=== PATIENT | male | born 1970 | race African-American/Black ===

== ENCOUNTER 2018-01-18 21:46 | Inpatient (IN) | payer SELFPAY ==
[~2018-01-18] VITALS: Ht 188 cm; Wt 72.1 kg
[2018-01-18] MEDS ORDERED: IV NORMAL SALINE 1,000ML 1,000 ML IV SCH (22:01)
--- NOTE | 2018-01-18 22:09 | EKG ---
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
[2018-01-18 22:24] LABS: BASO # 0.1 x10^3/uL (0.0-0.2); BASO % 1 % (0-3); EOS # 0.1 x10^3/uL (0.0-0.7); EOS % 1 % (0-3); HEMATOCRIT 38.6 % (39.0-53.0); HEMOGLOBIN 12.7 g/dL (13.0-17.5); LYMPH # 2.5 x10^3/uL (1.0-4.8); LYMPH % 36 % (24-48); MEAN CORPUSCULAR HEMOGLOBIN 28 pg (25-35); MEAN CORPUSCULAR HGB CONC 33 g/dL (31-37); MEAN CORPUSCULAR VOLUME 86 fL (79-100); MONO # 0.4 x10^3/uL (0.0-1.1); MONO % 6 % (0-9); NEUT # 3.7 x10^3uL (1.8-7.7); NEUT % 55 % (31-73); PLATELET COUNT 205 x10^3/uL (140-400); RED BLOOD COUNT 4.51 x10^6/uL (4.30-5.70); RED CELL DISTRIBUTION WIDTH 15.7 % (11.5-14.5); WHITE BLOOD COUNT 6.8 x10^3/uL (4.0-11.0)
--- NOTE | 2018-01-18 22:27 | PHYS DOC ---
Past History Past Medical History: CVA Smoking: Cigarettes Adult General Chief Complaint Chief Complaint: NEURO SYMPTOMS/DEFICITS HPI HPI Patient is a 47 year old male who presents with complaint of left upper extremity weakness. Patient states that his symptoms started 3 days ago. The patient states he's had previous history of multiple hemorrhagic CVAs and has been treated at [facility] in the past. Patient states that he has had chronic left-sided motor deficits but states that he has rehabilitation well and has been able to independently ambulate. Patient states that he noticed weakness in his left upper extremity after he was trying to pour from a pitcher and states that he lost the mortgage assistant on it. Patient states that the weakness in his left upper extremity has persisted since then. He states that this is worse than his baseline. Patient notes also that he has had increased numbness in the left upper extremity. Patient denies any increased weakness in the left lower extremity, difficulty with speech or swallowing, loss of vision, or fever. The patient states that he is not currently taking medications for treatment. Patient has not taken any medicine since onset of symptoms. Review of Systems Review of Systems Constitutional: Denies fever or chills [] Eyes: Denies change in visual acuity, redness, or eye pain [] HENT: Denies nasal congestion or sore throat [] Respiratory: Denies cough or shortness of breath [] Cardiovascular: Denies chest pain or edema[] GI: Denies abdominal pain, nausea, vomiting, bloody stools or diarrhea [] : Denies dysuria or hematuria [] Musculoskeletal: Chronic left hip pain[] Integument: Denies rash or skin lesions [] Neurologic: Left upper extremity weakness and numbness[] All other systems were reviewed and found to be within normal limits, except as documented in this note. Current Medications Current Medications Current Medications Medications (Trade) Dose Ordered Sig/Lesia Start Time Stop Time Status Last Admin Dose Admin Sodium Chloride 1,000 ml @ 1,000 mls/hr Q1H 01/18/18 22:01 01/18/18 23:00 UNV Allergies Allergies No known drug allergies Physical Exam Physical Exam Constitutional: Alert, afebrile, no acute distress. [] HENT: Normocephalic, atraumatic, bilateral external ears normal, oropharynx moist, no oral exudates, nose normal. [] Eyes: PERRLA, EOMI, conjunctiva normal, no discharge. [] Neck: Normal range of motion, no tenderness, supple, no stridor. [] Cardiovascular: Bradycardiac, regular rhythm, no murmur [] Lungs & Thorax: Bilateral breath sounds clear to auscultation [] Abdomen: Bowel sounds normal, soft, no tenderness, no masses, no pulsatile masses. [] Skin: Warm, dry, no erythema, no rash. [] Back: No tenderness, no CVA tenderness. [] Extremities: No tenderness, no cyanosis, no clubbing, ROM intact, no edema. [] Neurologic: Alert and oriented X 3, cranial nerves II through XII grossly intact , 4 out of 5 strength in the left upper extremity, 5 out of 5 strength in all other extremities, normal [id number] test, normal finger to nose test, decreased sensation in the left upper extremity to light touch. [] Current Patient Data Vital Signs Vital Signs Date Time Temp Pulse Resp B/P (MAP) Pulse Ox O2 Delivery O2 Flow Rate FiO2 01/18/18 22:11 Nasal Cannula 2.0 Lab Results Laboratory Tests Test 01/18/18 22:10 White Blood Count 6.8 x10^3/uL Red Blood Count 4.51 x10^6/uL Hemoglobin 12.7 g/dL Hematocrit 38.6 % Mean Corpuscular Volume 86 fL Mean Corpuscular Hemoglobin 28 pg Mean Corpuscular Hemoglobin Concent 33 g/dL Red Cell Distribution Width 15.7 % Platelet Count 205 x10^3/uL Neutrophils (%) (Auto) 55 % Lymphocytes (%) (Auto) 36 % Monocytes (%) (Auto) 6 % Eosinophils (%) (Auto) 1 % Basophils (%) (Auto) 1 % Neutrophils # (Auto) 3.7 x10^3uL Lymphocytes # (Auto) 2.5 x10^3/uL Monocytes # (Auto) 0.4 x10^3/uL Eosinophils # (Auto) 0.1 x10^3/uL Basophils # (Auto) 0.1 x10^3/uL Sodium Level 143 mmol/L Potassium Level 3.7 mmol/L Chloride Level 109 mmol/L Carbon Dioxide Level 29 mmol/L Anion Gap 5 Blood Urea Nitrogen 10 mg/dL Creatinine 1.0 mg/dL Estimated GFR (Cockcroft-Gault) 97.8 BUN/Creatinine Ratio 10 Glucose Level 88 mg/dL Calcium Level 9.1 mg/dL Magnesium Level 1.7 mg/dL Total Bilirubin 0.3 mg/dL Aspartate Amino Transf (AST/SGOT) 12 U/L Alanine Aminotransferase (ALT/SGPT) 17 U/L Alkaline Phosphatase 60 U/L Total Protein 6.4 g/dL Albumin 3.5 g/dL Albumin/Globulin Ratio 1.2 Current Medications Medications (Trade) Dose Ordered Sig/Lesia Route PRN Reason Start Time Stop Time Status Last Admin Dose Admin Sodium Chloride 1,000 ml @ 1,000 mls/hr Q1H IV 01/18/18 22:01 01/18/18 23:00 UNV 01/18/18 22:42 Aspirin (Children'S Aspirin) 324 mg 1X ONCE PO 01/18/18 22:30 01/18/18 22:31 UNV 01/18/18 22:42 EKG EKG Interpreted by me: Heart rate 49, sinus bradycardia, normal intervals, normal axis, no acute ST/T-wave abnormalities present[] Radiology/Procedures Radiology/[place] [address] IMAGING REPORT Signed PATIENT: DMITRY WILKINSON ACCOUNT: [id number] : 1970 LOCATION: ER AGE: 47 SEX: M EXAM STATUS: REG ER ORD. PHYSICIAN: ANGIE MCLEOD MD REASON: left sided weakness x 3 days, hx of CVA PROCEDURE: CT HEAD WO CONTRAST CT Head W/O Contrast: History: left sided weakness x 3 days, hx of CVA Comparison: none Axial images were obtained without contrast. The lewis and white matter appears normal and symmetrical for the patients age. There is no mass effect, extraaxial fluid collections or hydrocephalus. There is right temporal frontal encephalomalacia consistent with old stroke in the right MCA territory. There is no gross bleed. There is no focal loss of lewis-white matter distinction to suggest acute ischemia, i.e. stroke. Impression: Old stroke on the right. No acute findings. PQRS Compliance Statement: One or more of the following individualized dose reduction techniques were utilized for this examination: 1. Automated exposure control 2. Adjustment of the mA and/or kV according to patient size 3. Use of iterative reconstruction technique Electronically signed by: Tran Hill III, MD (01/18/2018 10:24 PM) [facility] DICTATED AND SIGNED BY: TRAN HILL III, MD DATE: 01/18/182220 CC: ANGIE MCLEOD MD; PCP,UNKNOWN ~ [] Course & Med Decision Making Course & Med Decision Making Pertinent Labs and Imaging studies reviewed. (See chart for details) CT scan shows no new hemorrhage. Onset of symptoms are greater than 48 hours, and given history of hemorrhagic stroke, the patient is not a candidate for use of TPA with his new onset left upper extremity weakness. NIH score is 2. Etiology of the patient's new onset left upper extremity weakness is unclear. The patient will require admission to the hospital for further evaluation and care. Patient admitted to Dr. Barker. A routine consult was placed to Dr. Cervantes of neurology to follow with patient in hospital. Dragon Disclaimer Dragon Disclaimer This electronic medical record was generated, in whole or in part, using a voice recognition dictation system. Departure Departure: Impression: Primary Impression: Left-sided weakness Additional Impression: History of CVA (cerebrovascular accident) Disposition: ADMITTED INPATIENT Admitting Physician: Chanel Barker Condition: STABLE Referrals: PCP,UNKNOWN (PCP) Problem Qualifiers ANGIE MCLEOD MD Jan 18, 2018 22:27
[2018-01-18] MEDS ORDERED: ASPIRIN 81 MG TAB.CHEW PO ONE (22:30)
[2018-01-18 22:38] LABS: ALBUMIN 3.5 g/dL (3.4-5.0); ALBUMIN/GLOBULIN RATIO 1.2 (1.0-1.7); CALCIUM 9.1 mg/dL (8.5-10.1); GFR 97.8; MAGNESIUM 1.7 mg/dL (1.8-2.4); POTASSIUM 3.7 mmol/L (3.5-5.1); TOTAL BILIRUBIN 0.3 mg/dL (0.2-1.0); TOTAL PROTEIN 6.4 g/dL (6.4-8.2)
[2018-01-18] MEDS ORDERED: ACETAMINOPHEN 325 MG TABLET PO PRN (23:15)
[2018-01-18] MEDS ORDERED: ONDANSETRON PF 4 MG/2 ML VIAL. IV PRN (23:15)
--- NOTE | 2018-01-18 23:17 | RAD ---
AP chest x-ray HISTORY: Left-sided weakness. FINDINGS: Heart size normal. Mediastinal silhouette is normal. No pneumothorax, pulmonary opacities or pleural effusions. Bones are unremarkable. IMPRESSION: No acute process. Electronically signed by: Korey Chadwick MD (01/18/2018 11:13 PM) [facility]
[2018-01-18 23:46] LABS: BACTERIA,URINE 0 /HPF (0-FEW); BILIRUBIN,URINE NEG (NEG); CLARITY,URINE CLEAR; COLOR,URINE YELLOW; GLUCOSE,URINE NEG (NEG); NITRITE,URINE NEG (NEG); RBC,URINE 0 /HPF (0-2); SQUAMOUS EPITHELIAL CELL,UR OCC /LPF; UROBILINOGEN,URINE 0.2 mg/dL (0.2 mg/dL); WBC,URINE OCC /HPF (0-4)
[2018-01-18 23:47] LABS: AMPHETAMINE/METHAMPHETAMINE NEG (NEG); BARBITURATES NEG (NEG); BENZODIAZEPINES NEG (NEG); CANNABINOIDS NEG (NEG); COCAINE NEG (NEG); METHADONE NEG (NEG); OPIATES NEG (NEG); PHENCYCLIDINE NEG (NEG)
[2018-01-18 23:54] VITALS: BP 137/72
[2018-01-19] MEDS: IV NORMAL SALINE 1,000ML 1,000 ML IV SCH ×3 (00:03→19:07)
[2018-01-19] MEDS ORDERED: NICOTINE 21MG PATCH. TD PRN (01:15)
[2018-01-19] MEDS ORDERED: ASPI81TA50 PO (01:46)
[2018-01-19 05:41] VITALS: BP 133/79
[2018-01-19 06:40] LABS: CALCIUM 8.8 mg/dL (8.5-10.1); GFR 97.8; POTASSIUM 3.7 mmol/L (3.5-5.1)
[2018-01-19 11:04] VITALS: BP 123/65
--- NOTE | 2018-01-19 14:02 | HP ---
ADMIT DATE: 01/18/2018 HISTORY OF PRESENT ILLNESS: The patient is a 47-year-old -[place] male patient who was seen in the Emergency Room with a complaint of left upper extremity weakness. He stated that his symptoms started about 3 days ago. The patient stated he had previous history of multiple hemorrhagic CVAs and has been treated at [facility]. In the past, he did have chronic left-sided motor deficit but stated he has rehabilitation well and has been able to independently ambulate. He stated he noticed weakness in his left upper extremity after he was trying to board from wheelchair and states that he lost the quality facilitator on it. He stated weakness in his left upper extremity has persisted since then. He stated this is worse than his baseline. He notes that he has had increased numbness in his left upper extremity. He denied any worsening weakness in his left lower extremity or difficulty with speech or swallowing. He denied any loss of vision or fever. The patient said that he has not had any medications since the onset of symptoms as he was pulled over by a risk control consultant while on his way back to [place] around at [place] and he was incarcerated for the last 3 days. He does not know what happened to his car or his dogs. He was evaluated in the Emergency Room. His CT scan showed that he has right temporal frontal encephalomalacia consistent with an old stroke in the right middle cerebral artery territory. There is no gross bleed. There is no focal loss of lewis-white matter differentiation to suggest an acute ischemia, i.e., stroke. PAST MEDICAL HISTORY: Significant for according to him multiple strokes, although the CT scan showed only the right-sided CVA consistent with the weakness in his left side. He also has seizure disorder for which he is on Keppra. PAST SURGICAL HISTORY: Significant for skin grafting to his left ring and middle fingers. ALLERGIES: He has no known drug allergies. MEDICATIONS: We are not sure exactly what medications he is on, but we will contact the [facility] in [place] to find out exactly how much he is getting or what he is getting. He claims that he is on aspirin, Keppra, and Nicoderm patch. He apparently has had left heart catheterization and was told that his heart is weak and he might require defibrillator, although he is not on any blood thinner. FAMILY HISTORY: He has 1 brother and 3 sisters, alive and healthy. His father in his late 50s as a complication of coronary artery bypass graft surgery. His mother in her late 50s also because of bronchial asthma and complication of diabetes. SOCIAL HISTORY: He is single, never ; however, he has 2 sons and 1 daughter. He smokes more than a pack a day. He does not drink alcohol or use any recreational drugs. He is currently on disability. REVIEW OF SYSTEMS: The patient denied any blurring of vision, cataract, glaucoma, or macular degeneration. Denied any earache, tinnitus, or sensorineural deafness. Denied any nosebleeds, stuffy nose, or postnasal drip. Denied any nausea, vomiting, diarrhea, or constipation. Did complain of weight loss. He said that he used to weigh 180 and he has weight now on 156. Denied any hematemesis, melena, or hematochezia. Denied any dysuria, frequency, or hematuria. Denied any chest pain, shortness of breath, orthopnea, or paroxysmal nocturnal dyspnea. Denied any cough, phlegm, or hemoptysis. Denied any chills, rigors, or fever. Denied any dizziness, lightheadedness, or vertigo. PHYSICAL EXAMINATION: GENERAL: On arrival to the Emergency Room, he looked well and was clearly in no apparent respiratory distress. There was no pallor, jaundice, or cyanosis. No lymphadenopathy, no thyromegaly. No jugular venous distention. No limb edema. VITAL SIGNS: His heart rate was 53, blood pressure was 128/79, temperature was 98.4, respiratory rate was 18, and oxygen saturation was 100% on room air. HEAD, EYES, EARS, NOSE, AND THROAT: Showed normocephalic, atraumatic. NECK: Supple. HEART: Showed normal first and second heart sounds with no gallop, rub, or murmur. CHEST: Clear to auscultation. No crepitation or rhonchi. ABDOMEN: Scaphoid, soft, nontender. NEUROLOGIC: He is awake, alert, responding appropriately. All his cranial nerves are intact; however, he clearly has left-sided hemiparesis. He is able to walk with mild circumduction of his left lower extremity. There is no evidence of any cerebellar dysfunction and Romberg test was negative. LABORATORY DATA: His lab work in the Emergency Room showed a white cell count of 6800, hemoglobin 12.7, hematocrit 38.6, MCV 86, and platelet count 205,000. Serum sodium 143, potassium 3.7, chloride 109, bicarbonate 29, anion gap of 5, BUN 10, creatinine 1, estimated GFR was 98 mL per minute. Her glucose was 88, calcium was 9.1, magnesium was 1.7. Total bilirubin, AST, ALT, alkaline phosphatase were normal. His total protein was 6.4, albumin was 3.5. Urinalysis was essentially unremarkable. The urine was yellow, clear with a pH of 6.5, specific gravity of 1.020. The urine was negative for protein, glucose, ketones, blood, nitrite, and leukocyte esterase. There are no rbc's, no wbc's, and no bacteria. Urine toxicology screen was essentially negative. He has had a chest x-ray, which basically showed the heart size is normal. Mediastinal silhouette is normal. No pneumothorax, pulmonary opacities, or pleural effusion. The bones are unremarkable. His CT scan of the head showed lewis and white matter appears normal and symmetrical for the patient's age. There is no mass effect, extraaxial fluid collection, or hydrocephalus. There is right temporal frontal encephalomalacia consistent with old stroke in the right middle cerebral artery territory. There is no gross bleed. There is no focal loss of lewis-white matter distinction to suggest acute ischemia. ASSESSMENT: So in summary, this is a 47-year-old male patient who has a previous stroke with left-sided weakness, who came claiming that he has worsening of his weakness, especially left upper extremity with a wrist drop that started about 3 days ago. Apparently, he was incarcerated and was released only yesterday. He clearly has left-sided hemiparesis. I do not have any way to compare before, but he seemed to be fairly functional even with this deficit. He is able to walk without any difficulty and the CT scan did not show any worsening. He has what seems to be right middle cerebral artery territory infarct with left-sided hemiparesis. PLAN: My plan is to get his records from the [facility] and [facility]. We will consult Dr. Cervantes. Meanwhile, we will continue with physical and occupational therapy. We will continue with his at least aspirin for now. I will arrange for him to have a carotid Doppler and it seems from his description that he might have nonischemic cardiomyopathy as he was supposed to see a welding machine operator arc for possible defibrillator according to him. STEPHANIE WALKER MD DR: DAVID/kvng JOB#: [id number] / [id number]
--- NOTE | 2018-01-19 14:52 | RAD ---
Carotid ultrasound, 01/19/2018: HISTORY: Worsening left-sided weakness Duplex evaluation of the carotid arteries and neck was performed including grayscale, color-flow and spectral Doppler analysis. There is mild intimal thickening in the common carotid arteries and at the carotid bifurcations. No prominent focal plaque formation is seen. The peak systolic velocity in the right internal carotid artery is 94 cm/s with an end-diastolic velocity of 37 cm/s. The peak systolic velocity in the left internal carotid artery is 110 cm/s with an end-diastolic velocity of 41 cm/s and an internal carotid to common carotid artery ratio of 1.9. These Doppler findings do not suggest significant stenosis. Antegrade flow is present in both vertebral arteries in the neck. IMPRESSION: No duplex evidence of significant carotid stenosis in the neck. Note: Stenosis calculations for CT, MRA and conventional angiography are based upon determination of the distal ICA diameter in accordance with the NASCET methodology. Stenosis calculations for Doppler studies are derived from validated velocity criteria which are known to correlate with NASCET methodology of determining stenosis. Electronically signed by: Pro Gillespie MD (01/19/2018 2:49 PM) [facility]
[2018-01-19 16:35] VITALS: BP 130/60
[2018-01-19 19:53] VITALS: BP 120/80
[2018-01-19] MEDS: levETIRAcetam 500 MG TABLET PO SCH (20:36)
[2018-01-19 22:24] VITALS: BP 111/70
--- NOTE | 2018-01-20 03:10 | CONS ---
DATE OF CONSULTATION: 01/19/2018 NEUROLOGICAL CONSULTATION REFERRING PHYSICIAN: Chanel Barker MD. REASON FOR CONSULTATION: Rule out TIA versus stroke. HISTORY OF PRESENT ILLNESS: This is a 47-year-old right-handed -[place] male, who was admitted through Emergency Room after he presented with a 3-day history of worsening of left upper extremity weakness. The patient stated he has had a history of two hemorrhagic strokes several years ago, resulted in left hemiparesis, improved with extensive rehabilitation. He has been followed by a neurologist and director of dementia operations at [facility] and he has been doing well until 3 days ago when he started having left upper extremity weakness, mainly in the left hand. He has had some difficulty with gait likely due to previous stroke; however, initial non-enhanced head CT scan revealed evidence of an old right temporal frontal encephalomalacia consistent with old stroke in the right MCA distribution. He denies headaches, visual disturbances, nausea, vomiting, chest pain, shortness of breath or palpitation, dysarthria, dysphagia or vertigo. The patient has not been taking his medication since the onset of these current symptoms. PAST MEDICAL HISTORY: Significant for old right hemorrhagic stroke resulted in left hemiparesis, more prominent in the left upper extremity with current exacerbation. The patient had seizure resulted from stroke. Therefore, he has been kept on Keppra. The patient also had history of bradycardia. PAST SURGICAL HISTORY: Positive for skin graft for left ring and middle fingers. SOCIAL HISTORY: The patient is single. He has 2 sons and 1 daughter. He smokes more than 1 pack of cigarettes daily and he denies alcohol drinking or illicit drug use. Currently, he has been disabled. FAMILY HISTORY: The patient had three sisters and one brother. His father at the age of 50s from coronary artery bypass graft surgery. His mother at age of late 50s from complication of diabetes mellitus and asthma. CURRENT MEDICATIONS: Please see MRAD. REVIEW OF SYSTEMS: A 10-point review of system was performed as mentioned above in the history of present illness. PHYSICAL EXAMINATION: GENERAL: Well-developed, well-nourished, -[place] male, not in acute distress. VITAL SIGNS: Stable, blood pressure 120/80, respiratory rate is 16, pulse is 55 and regular, not in acute distress. Oxygen saturation is 100% on room air. HEENT: Normocephalic, atraumatic, otherwise, unremarkable. NECK: Supple. Negative for carotid bruit, lymphadenopathy or thyromegaly. LUNGS: Clear to A and P. CARDIOVASCULAR: Regular rate and rhythm, normal S1, S2. There is no S3, S4, or murmur. ABDOMEN: Soft. Bowel sounds positive. EXTREMITIES: Negative for cyanosis, clubbing or pitting edema. MENTAL STATUS: The patient is alert and oriented x 3. The speech is fluent. There is no language dysfunction. Memory, judgment and abstracting thinking are normal. The patient denies hallucination or delusion. CRANIAL NERVES: Visual gaston are full. The pupils are reactive to light and accommodation. Extraocular movements are intact. There is no nystagmus. There is no facial motor or sensory deficit. Hearing is intact bilaterally. The palate is elevated symmetrically. Sternocleidomastoid muscles are powerful bilaterally. The patient shrugs his shoulders symmetrically, protrudes his tongue in the midline without fasciculation or atrophy. MOTOR EXAMINATION: No focal muscle bulk was seen. The tone is normal. The strength is 4/5 in the left goodyear stitcher compared to that on the right, goodyear stitcher strength also was 5/5 throughout. Sensory examination revealed normal pinprick, light touch, vibratory, and position senses. Deep tendon reflexes were symmetric and hypoactive with absent Achilles responses. Gait: The patient has abnormal tandem gait. LABORATORY DATA: CBC revealed white blood cells of 6.8 thousand, hemoglobin 12.7, hematocrit 38.6, platelet count 205,000. Chemistry revealed sodium of 144, potassium 3.7, chloride 110, CO2 of 27, BUN 8, creatinine 1, glucose is 79 and calcium 8.8. Urinalysis is negative for urinary tract infection. Urine drug screen is negative. DIAGNOSTIC: Initial non-enhanced head CT scan revealed old stroke on the right as described above in the right cerebral hemisphere. Carotid Doppler study revealed no significant carotid artery stenosis and chest x-ray revealed no acute cardiopulmonary process. IMPRESSION: 1. Longstanding history of two hemorrhagic strokes resulted in left hemiparesis -- improved with possible recent weakness of the left upper extremity with mild goodyear stitcher weakness compared of the left hand compared to the right side. 2. History of two hemorrhagic strokes as mentioned above. 3. History of seizure disorder probably secondary to stroke. RECOMMENDATIONS: 1. Continue with current management initiated by Dr. Barker. 2. Continue with current medications. The patient is neurologically stable. M Antoinette VERONICA MD DR: MARYANN/kvng JOB#: [id number] / [id number]
[2018-01-20 05:14] VITALS: BP 120/86
[2018-01-20] MEDS: levETIRAcetam 500 MG TABLET PO SCH (08:02)
[2018-01-20 10:32] VITALS: BP 100/57
--- NOTE | 2018-01-20 15:06 | DS ---
DATE OF DISCHARGE: 01/20/2018 HOSPITAL COURSE: The patient is a 47-year-old -[place] patient who came to the Emergency Room complaining of new onset of weakness in his left upper extremity. He apparently is known to have a remote history of 2 hemorrhagic strokes with resultant left-sided hemiplegia. He was extensively investigated in the Emergency Room, has had a CT scan of the head, which showed that the lewis and white matter appeared normal and symmetrical for the patient's age. There is no mass effect, extraaxial fluid collection or hydrocephalus. There is right bilateral frontotemporal encephalomalacia consistent with old stroke in the right middle cerebral artery territory. There is no gross bleed. There is no focal loss of lewis or white matter distinction to suggest acute ischemia. He has also bilateral carotid Doppler ultrasound, which showed that there is mild intimal thickening and the common carotid arteries and at the carotid bifurcation, no prominent focal plaque formation is seen. The peak systolic velocity in the right internal carotid artery is 94 cm/sec with an end-diastolic velocity of 37 cm and the conclusion is that there is antegrade flow is present in both vertebral arteries and there is no duplex-evidence of significant carotid stenosis in the neck. He was seen by Dr. Cervantes and basically, there was no evidence of any new infarct and the patient has been up and about without any difficulty and was discharged home. He claims was on Keppra and aspirin, but we have contacted multiple pharmacies. He has prescriptions that he has never actually filled. FINAL DISCHARGE DIAGNOSES: Two hemorrhagic strokes with resultant left-sided hemiparesis, seizure disorder, probably secondary to stroke. STEPHANIE WALKER MD DR: DAVID/kvng JOB#: [id number] / [id number]
== END 2018-01-20 14:30 | disposition home or self-care (01) | DRG 101 ==
LOC: ER 21:46 → 1 SOUTH 22:36
PROVIDERS: ADMIT Internal Medicine; ATTEND Internal Medicine
DX: G40.909 Epilepsy, unspecified, not intractable, without status epilepticus (principal); F17.210 Nicotine dependence, cigarettes, uncomplicated; G93.89 Other specified disorders of brain; I69.354 Hemiplegia and hemiparesis following cerebral infarction affecting left non-dominant side; Z82.5 Family history of asthma and other chronic lower respiratory diseases; Z83.3 Family history of diabetes mellitus
CPT/HCPCS: 36415; 70450; 71045; 80048; 80053; 80061; 80307; 81001; 83735; 85025; 93005; 93880; 96360; 99406; 99285-25; G0479; J7030